=== PATIENT | female | born 1970 | race Caucasian/White ===

== ENCOUNTER 2016-10-18 21:09 | Emergency (ER) | payer OTHER ==
[2016-10-18 21:23] VITALS: RESP 18
[2016-10-18] MEDS ORDERED: SODIUM CHLORIDE 0.9% 1,000 ML IV STA (21:52)
[2016-10-18] MEDS ORDERED: SODIUM CHLORIDE 0.9% 500 ML IV STA (21:52)
[2016-10-18] MEDS ORDERED: MORPHINE SULFATE 4 MG/ML SYRINGE IV STA (21:52)
[2016-10-18] MEDS ORDERED: RX INFO: IV CONTRAST WAS GIVEN 1 EACH MISC MISCELLANE PRN (21:53)
--- NOTE | 2016-10-18 22:32 | ED ---
General Adult HPI - General Chief complaint: Abdominal Pain Stated complaint: Back Pain Time Seen by Provider: 10/18/16 21:42 Source: patient, RN notes reviewed, old records reviewed Mode of arrival: wheelchair - History of Present Illness Initial comments: This is a 46-year-old female the ER for evaluation. This patient presents today for evaluation of upper back pain upper thoracic pain left-sided worse with a deep breath. Patient has had similar pain before but this is progressively worsening. Symptoms began this morning which she will O worse now. She has no risk factors for DVT, no recent travel history nor cough or congestion no fevers. Denies chest pain denies abdominal pain. - Related Data Home Medications Medication Instructions Recorded Confirmed Albuterol Inhaler [Ventolin Hfa 1 - 2 puff INHALATION RT-Q6H PRN 08/17/16 Inhaler] Baclofen [Lioresal] 10 mg PO BID PRN 10/18/16 10/18/16 Gabapentin [Neurontin] 300 mg PO TID 10/18/16 10/18/16 HYDROcodone/APAP 10-325MG [[place] 1 tab PO Q8H PRN 10/18/16 10/18/16 10-325] Ibuprofen [Motrin] 800 mg PO BID PRN 10/18/16 10/18/16 cloNIDine HCL [Catapres] 0.1 mg PO HS 10/18/16 10/18/16 lamoTRIgine [LaMICtal] 100 mg PO HS 10/18/16 10/18/16 Allergies Allergy/AdvReac Type Severity Reaction Status Date / Time meperidine [From Demerol] Allergy Dyspnea Verified 10/18/16 22:13 Review of Systems ROS Statement: Those systems with pertinent positive or pertinent negative responses have been documented in the HPI. ROS Other: All systems not noted in ROS Statement are negative. Past Medical History Past Medical History: Hypertension Additional Past Medical History / Comment(s): chronic back pain History of Any Multi-Drug Resistant Organisms: None Reported Past Surgical History: Section Additional Past Surgical History / Comment(s): cyst removal from breast. Past Psychological History: No Psychological Hx Reported Smoking Status: Current every day smoker Past Alcohol Use History: None Reported Past Drug Use History: Marijuana General Exam General appearance: alert, in no apparent distress Head exam: Present: atraumatic, normocephalic, normal inspection Eye exam: Present: normal appearance, PERRL, EOMI. Absent: scleral icterus, conjunctival injection, periorbital swelling ENT exam: Present: normal exam, mucous membranes moist Neck exam: Present: normal inspection. Absent: tenderness, meningismus, lymphadenopathy Respiratory exam: Present: normal lung sounds bilaterally. Absent: respiratory distress, wheezes, rales, rhonchi, stridor Cardiovascular Exam: Present: regular rate, normal rhythm, normal heart sounds. Absent: systolic murmur, diastolic murmur, rubs, gallop, clicks GI/Abdominal exam: Present: soft, normal bowel sounds. Absent: distended, tenderness, guarding, rebound, rigid Extremities exam: Present: normal inspection, full ROM, normal capillary refill. Absent: tenderness, pedal edema, joint swelling, calf tenderness Back exam: Present: normal inspection Neurological exam: Present: alert, oriented X3, CN II-XII intact Psychiatric exam: Present: normal affect, normal mood Skin exam: Present: warm, dry, intact, normal color. Absent: rash Course Vital Signs 10/18/16 21:20 Temperature 97.9 F Pulse Rate 89 Respiratory 18 Rate Blood Pressure 114/75 O2 Sat by Pulse 97 Oximetry - Reevaluation(s) Reevaluation #1: 10/19/16 00:05 Patient with difficulty with morphine, still with pain Reevaluation #2: 10/19/16 00:05 At this time patient's pain is controlled EKG Findings - EKG Comments: EKG Findings:: EKG shows normal sinus arrest 24, IN 152, QRS 90, QTC 444 Medical Decision Making - Medical Decision Making 46 [id number] nonspecific thoracic back pain. Patient's pain at this time is improved, CT negative lab work is normal patient can be discharged home - Lab Data Result diagrams: 10/18/16 22:45 10/18/16 22:45 Lab Results 10/18/16 10/18/16 10/18/16 Range/Units 22:45 22:45 22:45 WBC 8.8 (3.8-10.6) k/uL RBC 3.98 (3.80-5.40) m/uL Hgb 12.2 (11.4-16.0) gm/dL Hct 37.7 (34.0-46.0) % MCV 94.9 (80.0-100.0) fL MCH 30.8 (25.0-35.0) pg MCHC 32.4 (31.0-37.0) g/dL RDW 14.1 (11.5-15.5) % Plt Count 274 (150-450) k/uL Neutrophils % 62 % Lymphocytes % 27 % Monocytes % 6 % Eosinophils % 3 % Basophils % 0 % Neutrophils # 5.4 (1.3-7.7) k/uL Lymphocytes # 2.4 (1.0-4.8) k/uL Monocytes # 0.5 (0-1.0) k/uL Eosinophils # 0.3 (0-0.7) k/uL Basophils # 0.0 (0-0.2) k/uL PT (9.0-12.0) sec INR (<1.1) APTT (22.0-30.0) sec D-Dimer (<0.60) mg/L FEU Sodium 139 (137-145) mmol/L Potassium 4.5 (3.5-5.1) mmol/L Chloride 106 (98-107) mmol/L Carbon Dioxide 24 (22-30) mmol/L Anion Gap 9 mmol/L BUN 15 (7-17) mg/dL Creatinine 0.77 (0.52-1.04) mg/dL Est GFR (MDRD) Af Amer >60 (>60 ml/min/1.73 sqM) Est GFR (MDRD) Non-Af >60 (>60 ml/min/1.73 sqM) Glucose 88 (74-99) mg/dL Calcium 8.9 (8.4-10.2) mg/dL Magnesium 2.0 (1.6-2.3) mg/dL Total Bilirubin 0.3 (0.2-1.3) mg/dL AST 17 (14-36) U/L ALT 26 (9-52) U/L Alkaline Phosphatase 62 (38-126) U/L Total Creatine Kinase 76 (30-135) U/L CK-MB (CK-2) 0.6 (0.0-2.4) ng/mL CK-MB (CK-2) Rel Index 0.8 Troponin I <0.012 (0.000-0.034) ng/mL NT-Pro-B Natriuret Pep pg/mL Total Protein 7.1 (6.3-8.2) g/dL Albumin 3.9 (3.5-5.0) g/dL Lipase 154 (23-300) U/L Urine Color Urine Appearance (Clear) Urine pH (5.0-8.0) Ur Specific [place] (1.001-1.035) Urine Protein (Negative) Urine Glucose (UA) (Negative) Urine Ketones (Negative) Urine Blood (Negative) Urine Nitrate (Negative) Urine Bilirubin (Negative) Urine Urobilinogen (<2.0) mg/dL Ur Leukocyte Esterase (Negative) Urine RBC (0-5) /hpf Urine WBC (0-5) /hpf Ur Squamous Epith Cells (0-4) /hpf Urine Bacteria (None) /hpf Urine Mucus (None) /hpf 10/18/16 10/18/16 10/18/16 Range/Units 22:45 22:45 22:50 WBC (3.8-10.6) k/uL RBC (3.80-5.40) m/uL Hgb (11.4-16.0) gm/dL Hct (34.0-46.0) % MCV (80.0-100.0) fL MCH (25.0-35.0) pg MCHC (31.0-37.0) g/dL RDW (11.5-15.5) % Plt Count (150-450) k/uL Neutrophils % % Lymphocytes % % Monocytes % % Eosinophils % % Basophils % % Neutrophils # (1.3-7.7) k/uL Lymphocytes # (1.0-4.8) k/uL Monocytes # (0-1.0) k/uL Eosinophils # (0-0.7) k/uL Basophils # (0-0.2) k/uL PT 9.6 (9.0-12.0) sec INR 0.9 (<1.1) APTT 25.7 (22.0-30.0) sec D-Dimer 0.36 (<0.60) mg/L FEU Sodium (137-145) mmol/L Potassium (3.5-5.1) mmol/L Chloride (98-107) mmol/L Carbon Dioxide (22-30) mmol/L Anion Gap mmol/L BUN (7-17) mg/dL Creatinine (0.52-1.04) mg/dL Est GFR (MDRD) Af Amer (>60 ml/min/1.73 sqM) Est GFR (MDRD) Non-Af (>60 ml/min/1.73 sqM) Glucose (74-99) mg/dL Calcium (8.4-10.2) mg/dL Magnesium (1.6-2.3) mg/dL Total Bilirubin (0.2-1.3) mg/dL AST (14-36) U/L ALT (9-52) U/L Alkaline Phosphatase (38-126) U/L Total Creatine Kinase (30-135) U/L CK-MB (CK-2) (0.0-2.4) ng/mL CK-MB (CK-2) Rel Index Troponin I (0.000-0.034) ng/mL NT-Pro-B Natriuret Pep 18 pg/mL Total Protein (6.3-8.2) g/dL Albumin (3.5-5.0) g/dL Lipase (23-300) U/L Urine Color Yellow Urine Appearance Clear (Clear) Urine pH 5.5 (5.0-8.0) Ur Specific [place] 1.029 (1.001-1.035) Urine Protein Trace H (Negative) Urine Glucose (UA) Negative (Negative) Urine Ketones Negative (Negative) Urine Blood Moderate H (Negative) Urine Nitrate Negative (Negative) Urine Bilirubin Negative (Negative) Urine Urobilinogen 2.0 (<2.0) mg/dL Ur Leukocyte Esterase Negative (Negative) Urine RBC 1 (0-5) /hpf Urine WBC 1 (0-5) /hpf Ur Squamous Epith Cells 4 (0-4) /hpf Urine Bacteria Rare H (None) /hpf Urine Mucus Rare H (None) /hpf - Radiology Data Radiology results: report reviewed (CT chest shows no aortic issue, no PE), image reviewed Disposition Clinical Impression: Thoracic back pain Disposition: HOME SELF-CARE Condition: Good Instructions: Back Pain (ED) Referrals: Joni Valle DO [Primary Care Provider] - 1-2 days
[2016-10-18] MEDS ORDERED: diphenhydrAMINE 50 MG/ML 1 ML VIAL IVP STA (22:48)
[2016-10-18 22:55] LABS: Basophils % (A) 0 %; CH 30.9; CHCM 32.7; Eosinophils # (A) 0.3 k/uL (0-0.7); Eosinophils % (A) 3 %; HCT 37.7 % (34.0-46.0); HGB 12.2 gm/dL (11.4-16.0); Luc % (Auto) 2; Lymphocytes # (A) 2.4 k/uL (1.0-4.8); Lymphocytes % (A) 27 %; MCH 30.8 pg (25.0-35.0); MCHC 32.4 g/dL (31.0-37.0); MCV 94.9 fL (80.0-100.0); Mean Platelet Volume 7.2; Monocytes # (A) 0.5 k/uL (0-1.0); Monocytes % (A) 6 %; Neutrophils # (A) 5.4 k/uL (1.3-7.7); Neutrophils % (A) 62 %; RBC 3.98 m/uL (3.80-5.40); RDW 14.1 % (11.5-15.5); WBC 8.8 k/uL (3.8-10.6); WBC (Perox) 9.35
[2016-10-18 23:04] LABS: ALT 26 U/L (9-52); AST 17 U/L (14-36); Alkaline Phosphatase 62 U/L (38-126); Anion Gap 9 mmol/L; Blood Urea Nitrogen 15 mg/dL (7-17); Calcium 8.9 mg/dL (8.4-10.2); Carbon Dioxide 24 mmol/L (22-30); Chloride 106 mmol/L (98-107); Glucose 88 mg/dL (74-99); Non-African American GFR(MDRD) >60 (>60 ml/min/1.73 sqM); Potassium 4.5 mmol/L (3.5-5.1); Sodium 139 mmol/L (137-145); Total Bilirubin 0.3 mg/dL (0.2-1.3); Total Protein 7.1 g/dL (6.3-8.2)
[2016-10-18 23:11] LABS: INR 0.9 (<1.1); Partial Thromboplastin Time 25.7 sec (22.0-30.0); Prothrombin Time 9.6 sec (9.0-12.0)
[2016-10-18 23:14] LABS: Creatine Kinase 76 U/L (30-135)
[2016-10-18 23:28] LABS: Creatine Kinase MB 0.6 ng/mL (0.0-2.4); Troponin I <0.012 ng/mL (0.000-0.034)
[2016-10-18 23:35] LABS: Appearance,Urine Clear (Clear); Bacteria,Urine Rare /hpf; Bilirubin,Urine Negative (Negative); Glucose,Urine (UA) Negative (Negative); Ketones,Urine Negative (Negative); Leukocyte Esterase,Urine Negative (Negative); Mucus,Urine Rare /hpf; Nitrite,Urine Negative (Negative); PH, Urine 5.5 (5.0-8.0); Particle Count 2035; Protein,Urine Trace (Negative); RBC,Urine 1 /hpf (0-5); Specific Gravity,Urine 1.029 (1.001-1.035); Squamous Epithelial Cell,Urine 4 /hpf (0-4); UA Billing (MACRO vs. MICRO) MICRO; WBC,Urine 1 /hpf (0-5)
--- NOTE | 2016-10-18 23:45 | CT ---
EXAMINATION TYPE: CT angio chest DATE OF EXAM: 10/18/2016 11:35 PM COMPARISON: NONE HISTORY: Chest pain, R/O PE CT DLP: 623 mGycm Automated exposure control for dose reduction was used. CONTRAST: CTA scan of the thorax is performed with IV Contrast, patient injected with 90 mL of Omnipaque 350, p ulmonary embolism protocol. . FINDINGS: The lungs are clear of consolidation. There is no evidence of a pulmonary mass. There is no mediastinal adenopathy. There is no evidence of aortic aneurysm or dissection. There is n ormal contrast opacification of the pulmonary arteries. I see no filling defect. There is no pericard ial effusion. There is no pleural effusion. There is minimal linear density in the right middle lobe. The bony thorax is intact. IMPRESSION: NO EVIDENCE OF PULMONARY EMBOLISM. MINIMAL RIGHT MIDDLE LOBE SCARRING OR SUBSEGMENTAL ATELECTASIS. NO RMAL HEART.
[2016-10-19] MEDS ORDERED: HYDROmorphone 2 MG/ML 1 ML SYRINGE IVP STA (00:04)
[2016-10-19 00:33] VITALS: BP 105/70; PULSE 70; TEMP 97.5
== END 2016-10-19 00:33 | disposition home or self-care (01) ==
LOC: EC 21:09
DX: M54.6 Pain in thoracic spine (principal); I10 Essential (primary) hypertension; M54.9 Dorsalgia, unspecified; G89.29 Other chronic pain; Z88.5 Allergy status to narcotic agent; Z79.899 Other long term (current) drug therapy; F17.200 Nicotine dependence, unspecified, uncomplicated
CPT/HCPCS: 99284; 96374; 96375; 96361; 36415; 93005; 85379; 83880; 80053; 82550; 82553; 83690; 83735; 84484; 85025; 85610; 85730; 81001; 87086; 71275; J2270; J1170; J1200; Q9967

== ENCOUNTER 2018-03-18 14:48 | Emergency (ER) | payer OTHER ==
[2018-03-18 15:00] VITALS: RESP 18
[2018-03-18] MEDS ORDERED: HYDROcodone/APAP 5-325MG 1 EACH TAB PO STA (15:18)
--- NOTE | 2018-03-18 15:34 | XR ---
EXAMINATION TYPE: XR chest 2V DATE OF EXAM: 03/18/2018 COMPARISON: NONE INDICATION: Pain TECHNIQUE: Frontal and lateral views of the chest are obtained. FINDINGS: The heart size is normal. The pulmonary vasculature is normal. The lungs are clear. IMPRESSION: 1. No acute pulmonary process.
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
[2018-03-18 16:31] VITALS: BP 134/79; PULSE 84; TEMP 98.6
== END 2018-03-18 16:34 | disposition home or self-care (01) ==
LOC: EC 14:48
DX: S20.211A Contusion of right front wall of thorax, initial encounter (principal); S20.212A Contusion of left front wall of thorax, initial encounter; M54.32 Sciatica, left side; R40.2412 Glasgow coma scale score 13-15, at arrival to emergency department; G89.29 Other chronic pain; F17.200 Nicotine dependence, unspecified, uncomplicated; Z79.899 Other long term (current) drug therapy; Z88.5 Allergy status to narcotic agent; V43.52XA Car driver injured in collision with other type car in traffic accident, initial encounter; Y92.410 Unspecified street and highway as the place of occurrence of the external cause
CPT/HCPCS: 71046; 99283

== ENCOUNTER 2019-11-12 18:17 | Emergency (ER) | payer OTHER ==
[2019-11-12 19:20] VITALS: TEMP 99.4
--- NOTE | 2019-11-12 19:41 | XR ---
EXAMINATION TYPE: XR chest 2V DATE OF EXAM: 11/12/2019 COMPARISON: 03/18/2018 HISTORY: Cough. TECHNIQUE: FINDINGS: Heart is normal. Lungs are clear. Diaphragm is normal. Bony thorax appears normal. Pulmonar y vascularity is normal. IMPRESSION: Normal chest. No change.
[2019-11-12] MEDS ORDERED: OSELTAMIVIR 75 MG CAP PO STA (20:30)
[2019-11-12] MEDS ORDERED: IBUPROFEN 600 MG TAB PO STA (20:30)
--- NOTE | 2019-11-12 20:32 | ED ---
URI HPI - General Chief Complaint: Upper Respiratory Infection Stated Complaint: fever/congestion/body aches/cough Time Seen by Provider: 11/12/19 20:04 Source: patient Mode of arrival: ambulatory Limitations: no limitations - History of Present Illness Initial Comments: 49-year-old female patient presents to the emergency department today for evaluation of upper respiratory symptoms, body aches, fever. Patient states she has been sick with symptoms since yesterday. Patient states that she has been having some shortness of breath and clear sputum production with this. States her temperature has been high but she does not have a thermometer. She denies any chest pain. Denies any rash. States that she does smoke cigarettes. She is requesting an inhaler that she is about to run out of hers. Denies receiving influenza vaccine this season. Patient denies any recent abdominal pain, nausea, vomiting, diarrhea, constipation, back pain, numbness, tingling, dizziness, weakness, hematuria, dysuria, urinary urgency, urinary frequency, headache, visual changes, or any other complaints. - Related Data Home Medications Medication Instructions Recorded Confirmed Pregabalin [Lyrica] 200 mg PO BID 03/18/18 03/18/18 Previous Rx's Medication Instructions Recorded HYDROcodone/APAP 5-325MG [[place] 1 tab PO Q6HR PRN #10 tab 03/18/18 5-325] predniSONE 50 mg PO DAILY #5 tablet 03/18/18 Albuterol Sulfate [Proair Hfa] 1 - 2 puff INHALATION Q6HR PRN #1 11/12/19 inhaler Oseltamivir [Tamiflu] 75 mg PO Q12HR #10 cap 11/12/19 guaiFENesin-Coden 100-10MG/5ML 10 ml PO Q4H PRN 3 Days #180 ml 11/12/19 [Robitussin AC] Allergies Allergy/AdvReac Type Severity Reaction Status Date / Time meperidine [From Demerol] Allergy Dyspnea Verified 11/12/19 19:20 Review of Systems ROS Statement: Those systems with pertinent positive or pertinent negative responses have been documented in the HPI. ROS Other: All systems not noted in ROS Statement are negative. Past Medical History Past Medical History: Hypertension Additional Past Medical History / Comment(s): chronic back pain History of Any Multi-Drug Resistant Organisms: None Reported Past Surgical History: Section Additional Past Surgical History / Comment(s): cyst removal from breast. Past Psychological History: No Psychological Hx Reported Smoking Status: Current every day smoker Past Alcohol Use History: None Reported Past Drug Use History: Marijuana General Exam Limitations: no limitations General appearance: alert, in no apparent distress, other (This is a well- developed, well-nourished adult female patient in no acute distress. Vital signs upon presentation are temperature 99.4F, pulse 80, respirations 22, blood pressure 132/87, pulse ox 95% on room air.) ENT exam: Present: mucous membranes moist, TM's normal bilaterally (Tympanic membranes are pearly without effusion). Absent: normal oropharynx (Pharyngeal erythema. No tonsillar hypertrophy or exudate) Respiratory exam: Present: normal lung sounds bilaterally. Absent: respiratory distress, wheezes, rales, rhonchi, stridor Cardiovascular Exam: Present: normal rhythm, tachycardia, normal heart sounds. Absent: systolic murmur, diastolic murmur, rubs, gallop, clicks GI/Abdominal exam: Present: soft, normal bowel sounds. Absent: distended, tenderness, guarding, rebound, rigid Neurological exam: Present: alert, oriented X3, CN II-XII intact Psychiatric exam: Present: normal affect, normal mood Skin exam: Present: warm, dry, intact, normal color. Absent: rash Course Vital Signs 11/12/19 11/12/19 19:18 20:52 Temperature 99.4 F Pulse Rate 80 90 Respiratory 22 16 Rate Blood Pressure 132/87 136/87 O2 Sat by Pulse 95 96 Oximetry Medical Decision Making - Medical Decision Making 49-year-old female patient presents to the emergency department today for evaluation of upper respiratory symptoms, fever, body aches. Physical examination revealed clear equal lung sounds. She did have some pharyngeal erythema. Chest x-ray showed no acute cardio pulmonary process. She did test positive for influenza A. She'll be started on Tamiflu. She'll be given a prescription for Mucinex and Pro Air inhaler. She is instructed take Tylenol Motrin for fever control. She is instructed to rest and increase fluids. She is instructed to follow-up the primary care physician for recheck in 1-2 days. Return parameters were discussed in detail patient verbalizes understanding and agrees with this plan. - Lab Data Lab Results 11/12/19 Range/Units 19:20 Influenza Type A RNA Detected H (Not Detectd) Influenza Type B (PCR) Not Detected (Not Detectd) - Radiology Data Radiology results: report reviewed, image reviewed Two-view x-ray of the chest is obtained. Report was reviewed in its entirety. Impression by Dr. Bui shows normal chest. No change Disposition Clinical Impression: Influenza A Disposition: HOME SELF-CARE Condition: Good Instructions (If sedation given, give patient instructions): Influenza (ED) Additional Instructions: Rest. Increase fluids. Take medications as directed. Alternate Tylenol and Motrin for pain and fever control. Follow-up through primary care physician for recheck in 1-2 days. Return to the emergency department immediately for any new, worsening, or concerning symptoms. Prescriptions: Albuterol Sulfate [Proair Hfa] 1 - 2 puff INHALATION Q6HR PRN #1 inhaler PRN Reason: Shortness Of Breath guaiFENesin-Coden 100-10MG/5ML [Robitussin AC] 10 ml PO Q4H PRN 3 Days #180 ml PRN Reason: Cough Oseltamivir [Tamiflu] 75 mg PO Q12HR #10 cap Is patient prescribed a controlled substance at d/c from ED?: No Referrals: Shilo Linares DO [STAFF PHYSICIAN] - 1-2 days Time of Disposition: 20:32
[2019-11-12 20:53] VITALS: BP 136/87; PULSE 90; RESP 16
== END 2019-11-12 20:53 | disposition home or self-care (01) ==
LOC: EC 18:17
DX: J10.1 Influenza due to other identified influenza virus with other respiratory manifestations (principal); R00.0 Tachycardia, unspecified; R06.02 Shortness of breath; F17.200 Nicotine dependence, unspecified, uncomplicated; Z88.5 Allergy status to narcotic agent
CPT/HCPCS: 71046; 87502; 99285